=== PATIENT | male | born 1950 | race Caucasian/White ===

== ENCOUNTER → 2021-04-29 07:25 | Day surgery (SDC) | payer MEDICARE, SELFPAY ==
[2021-04-29] MEDS: Lidocaine Jelly 2% 20 ML Syringe (URO-JET) 20 APPLIC (08:00)
[2021-04-29 08:03] VITALS: BP 135/88; PULSE 69; RESP 18; TEMP 36.7; O2SAT 98
== END ==
PROVIDERS: Surgery; PCP Family Medicine; Referring Provider Surgery; Visit Provider Surgery
PROC: F00ZJWZ Instrumental Swallowing and Oral Function Assessment using Swallowing Equipment (ICD-10-PCS; CPT 43235; principal; 2021-04-29 07:25)
DX: K21.9 Gastro-esophageal reflux disease without esophagitis (principal)
CPT/HCPCS: 91010; 91013

== ENCOUNTER 2021-05-11 07:04 | Day surgery (SDC) | payer MEDICARE, SELFPAY ==
[2021-05-11 07:33] VITALS: BP 145/76; PULSE 54; RESP 18; TEMP 36.2; O2SAT 100; BMI 25.2
[2021-05-11] MEDS: Lactated Ringers 1,000 ML 100 ML IV (07:39)
--- NOTE | 2021-05-11 07:45 | HP.PCM_ITS ---
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 Mark Lindsey MD) BPH (benign prostatic hyperplasia) Gastroesophageal reflux disease HTN (hypertension) Surgical History (Updated 04/05/21 @ 14:01 by Aliyah iTm) H/O elbow surgery S/P shoulder surgery Status post knee surgery Family History (Updated 04/05/21 @ 14:03 by Aliyah Tim) Father Heart disease Hypertension CVA (cerebral vascular accident) Mother Hypertension Social History (Updated 04/05/21 @ 14:03 by Aliyah Tim) Smoking Status: Former smoker alcohol intake: current HPI HPI HPI: CLARISSE ALONZO, is a 70 M who presents to the office today for surgical consultation regarding gastroesophageal reflux disease. The patient is referred by Dr. Dylon Nieto and a written copy of my surgical consult and recommendations will be referred to him. By report the patient previously was taking Pepcid but is no longer using this. He was initiated on Prevacid 30 mg daily and Carafate as well he particularly complains of nighttime burning and reflux. His most recent colonoscopy was July [address] Alton Gomez. The patient states that remotely he had a colonoscopy by Dr. Saurav Madison that included a polypectomy. He is not aware of any more recent polyps. We will try to obtain records I assisted the patient March 03 with a esophagogastroduodenoscopy with antral biopsy of the fundic polyp and distal esophageal biopsies and pH probe placement. Pathology showed moderate moderate chronic gastritis. Benign fundic gland polyp. Reflux esophagitis. H. pylori was negative. The pH study demonstrated a DeMeester score of 39.5. This would correlate very well with the patient's current complaint of choking and reflux particularly at night. Heartburn. He is taking intermittent acid and acids and addition to the newly restarted proton pump inhibitors. He awakes with a foul taste. He is very much interested in trying to come off of medications. Only previous abdominal surgery was remote appendectomy. ROS General General: No weight change, appetite, fatigue, colon cancer, breast cancer or weakness HEENT HEENT: No difficulty swallowing, eye injury, eye surgery, swollen glands or hoarseness Endo Endocrine: No thyroid disease, diabetes mellitus, thyroid cancer, Hair loss, heat intolerance or cold intolerance Skin Skin: No rash or changing moles Breast Breast: No left breast lump, right breast lump, nipple discharge, breast pain, abnormal mammogram, abnormal US or breast enlargement Musc Musculoskeletal: Yes back problems and arthritis; No rheumatoid arthritis, gout or joint pain Cardio Cardiovascular: Yes high blood pressure; No murmur, pacemaker, heart disease, atrial fibrillation, heart attack, heart stent, palpitations, shortness of breat with exertion or chest pain Psych Psychiatric: No depression, anxiety or hearing voices Resp Respiratory: No shortness of breath, No sleep apnea, No cough, No COPD, No asthma, No emphysema and No wheezing Gastro Gastrointestinal: No abdominal pain, No nausea or vomiting, No diarrhea, No cons tipation, No blood in stool, Yes acid reflux, No hemorrhoids, No ulcers, No gallbladder problem and No black,tarry stools Juan Hematologic: No blood thinners, No blood disorders, No bleeding, No anemia and No blood clots Neuro Neurologic: No system reviewed and no additional complaints, except as documented, No as per HPI, No abnormal gait, No abnormal hearing, No abnormal movements, No abnormal speech, No behavioral changes, No burning sensations, No confusion, No convulsions, No disequilibrium, No dizziness, No localized weakness, No frequent falls, No headache(s), No lack of coordination, No loss of vision, No memory loss, No numbness, No other visual disturbances, No radicular pain, No restless legs, No sensory deficit, No syncope, No tingling, No tremor(s), No weakness and No other Exam Const General: cooperative, healthy appearing, comfortable and no acute distress Nutritional Appearance: average body habitus Orientation: alert and awake [facility] Head: normal to inspection Eyes General: appearance normal, both eyes and all related structures Neck Neck: normal visual inspection Resp Effort & Inspection: normal respiratory effort Auscultation: clear to auscultation bilaterally Cardio Rate: regular rate Rhythm: regular rhythm GI Other: Soft, nontender, no hepatosplenomegaly, well-healed oblique incision right lower quadrant, umbilical hernia with preperitoneal fibrofatty tissue mostly reducible, slightly tender to manipulative pressure. Normal bowel sounds. Musc Cervical Spine: normal cervical lordosis Skin General: no rashes or lesions noted Neuro General: patient alert, patient awake and patient oriented x3 Cognition: normal cognition Extrem General: no calf tenderness Psych Appearance: grossly normal COVID (Procedure Consent) Procedure Criteria Procedure Criteria: Yes Elective The surgeon/proceduralist and patient have discussed in detail the risk of exposure to and/or potential harm posed by the COVID-19 virus with having a surgery/procedure at this time versus the risk of delaying the surgery/procedure. It is not possible to know either the risk of delaying the surgery or procedure or chance of getting an infection with perfect accuracy, but a joint decision was made between the patient and the surgeon/proceduralist to proceed at this time with the scheduled surgery/procedure as indicated on the consent form. Assessment and Plan Assessment and Plan (1) Gastroesophageal reflux disease: Qualifiers: Esophagitis presence: with esophagitis Esophagitis bleeding: without hemorrhage Qualified Code(s): K21.00 - Gastro-esophageal reflux disease with esophagitis, without bleeding (2) Umbilical hernia without obstruction or gangrene: Status: Acute Plan - Dr. Mark Lindsey MD: The patient presents with ongoing concerns regarding intractable gastroesophageal reflux disease. He has already been found to have significant reflux with esophagitis and gastritis and an elevated DeMeester score based upon pH probe analysis. The studies however take back to 2017. I propose for him a redo esophagogastroduodenoscopy with possible biopsy. Measurements will be made. He will not need a redo pH probe. I recommend to them subsequently esophageal manometry. I have briefly discussed with him recommendations for laparoscopic repair of his hiatal hernia and a laparoscopic reflux procedure likely a laparoscopic toupet. The patient has concerns about his umbilical hernia. This will be inferior to the sites of my access. I do not propose simultaneous umbilical hernia repair at the time of his hiatal hernia repair. He has had an opportunity to ask and have questions answered. He is thinking about having the reflux surgery July 2021. We will proceed with scheduling his upper endoscopy at his discretion as well as a manometry. We will also request records regarding his most recent colonoscopy to assess as to whether polyps were present. If no polyps are present that I will not need to update that at this time. I appreciate the opportunity of assisting with surgical care Copy: Dr. Dylon Lindsey M.D., F.A.C.S. Coding Level of Care Code 41708 Diagnoses Gastroesophageal reflux disease K21.00 Esophagitis presence: with esophagitis Esophagitis bleeding: without hemorrhage Umbilical hernia without obstruction or gangrene K42.9 I have re-examined the patient. There are no clinical changes since date of exam. Mark Lindsey M.D., F.A.C.S.
--- NOTE | 2021-05-11 08:15 | IMM_PTH ---
PATIENT: CLARISSE ALONZO LOC: EN U#:[id number] AGE/SX: 70/M ROOM: RE05/11/[address]: Dr. Mark Lindsey MD : 1950 BED: DIS: 05/11/2021 SPEC #: [id number] RECD: 05/11/21 12:29 STATUS: LINA REKathryn #: [id number] LALY: 05/11/21 08:[address]: Mark Lindsey DEPT: IMMUNOHISTOCHEMISTRY RECD BY: Flora Mariee ENTERED: 05/11/21 12:30 SP TYPE: IMMUNO OTHR DR: Dr. Dylon Nieto MD Tissues: A - Stomach, NOS Procedures: H Pylori (initial) PHYSICIAN & INSTITUTION [place] [id number] SPECIMEN INFORMATION: Tissue Source: A ? Antrum biopsy, C ? Distal esophagus biopsy Clinical Info: GERD Specimen Number: [id number] A & C CPT code: 18160 x2, 48083 METHODOLOGY: Deparaffinized sections of prefer/formalin-fixed tissue or PAP/DQ stained slides are incubated with monoclonal/polyclonal antibodies/oligonucleotide probes. Localization is made via biotin free immunoperoxidase method. Appropriate controls are performed and reacted as expected. Results on target cell population are indicated in the following table: RESULTS: ANTIBODY / CLONE RESULT Block A H Pylori (polyclonal) negative Block C P53 (DO-7) negative Ki-67 (30-9) positive, low These tests were developed and their performance characteristics determined by [facility]. They may not have been cleared or approved by the U.S. Food and Drug Administration. The FDA has determined that such clearance or approval is not necessary. The above immunohistochemical/dualISH markers are ordered and reviewed by the pathologist. INTERPRETATION: A. Antrum biopsy: Negative for Helicobacter pylori organisms. C. Distal esophagus, biopsy: No evidence of dysplasia. AM:robert 05/13/2021
--- NOTE | 2021-05-11 08:15 | IMM_PTH ---
PATIENT: CLARISSE ALONZO LOC: EN U#:[id number] AGE/SX: 70/M ROOM: RE05/11/[address]: Dr. Mark Lindsey MD : 1950 BED: DIS: 05/11/2021 SPEC #: [id number] RECD: 05/11/21 12:29 STATUS: LINA REKathryn #: [id number] LALY: 05/11/21 08:[address]: Mark Lindsey DEPT: IMMUNOHISTOCHEMISTRY RECD BY: Flora Mariee ENTERED: 05/11/21 12:30 SP TYPE: IMMUNO OTHR DR: Dr. Dylon Nieto MD Tissues: A - Stomach, NOS Procedures: H Pylori (initial) PHYSICIAN & INSTITUTION [place] [id number] SPECIMEN INFORMATION: Tissue Source: A ? Antrum biopsy Clinical Info: GERD Specimen Number: [id number] CPT code: 64828 METHODOLOGY: Deparaffinized sections of prefer/formalin-fixed tissue or PAP/DQ stained slides are incubated with monoclonal/polyclonal antibodies/oligonucleotide probes. Localization is made via biotin free immunoperoxidase method. Appropriate controls are performed and reacted as expected. Results on target cell population are indicated in the following table: RESULTS: ANTIBODY / CLONE RESULT Block A H Pylori (polyclonal) negative These tests were developed and their performance characteristics determined by [facility]. They may not have been cleared or approved by the U.S. Food and Drug Administration. The FDA has determined that such clearance or approval is not necessary. INTERPRETATION: A. Antrum biopsy: Negative for Helicobacter pylori organisms. AM:robert 05/12/2021
--- NOTE | 2021-05-11 08:15 | EGD_PTH ---
PATIENT: CLARISSE ALONZO LOC: EN U#:[id number] AGE/SX: 70/M ROOM: RE05/11/[address]: Dr. Mark Lindsey MD : 1950 BED: DIS: 05/11/2021 SPEC #: [id number] RECD: 05/11/21 09:46 STATUS: LINA [place] #: [id number] LALY: 05/11/21 08:[address]: Mark Lindsey DEPT: SURGICAL PATHOLOGY RECD BY: Jacqui Arenas ENTERED: 05/11/21 10:46 SP TYPE: EGD BIOPSY OT DR: Dr. Dlyon Nieto MD Tissues: A - Gastric mucous membrane B - COLON BIOPSY C - Esophagus, NOS Procedures: Special Stain Group II Surgery Specimen Level IV Alcian Blue/PAS (control) HEADER OPERATION: EGD ([facility]) PRE-OP DIAGNOSIS: GERD TISSUE SUBMITTED: A ? Antrum biopsy for H. pylori and path, B ? Greater curvature polyp biopsy, C ? Distal esophagus biopsy MICROSCOPIC DIAGNOSIS A. Gastric antrum, biopsy: Chronic gastritis. See comment. B. Greater curvature of stomach polyp, biopsy: Fundic gland polyp. C. Distal esophagus, biopsy: Gastroesophageal junctional mucosa with mild chronic inflammation. Focal changes of reflux. 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 No evidence of dysplasia. See comment. AM:robert 05/12/2021 COMMENT A. The results of immunohistochemistry for Helicobacter pylori will be reported separately ([id number]). B. Alcian blue/PAS stain with matched control supports the above diagnosis. Immunohistochemistry ([id number]) for P53 and Ki-67 will be performed and results will be reported separately. MICROSCOPIC DESCRIPTION Slides are reviewed. GROSS DESCRIPTION A - Received in fixative is one container labeled with the patient's name and designated antrum biopsy. The specimen consists of one irregular fragment of light sykes soft tissue that measures 0.4 x 0.2 x 0.1 cm. The specimen is totally submitted in one cassette. B - Received in fixative is one container labeled with the patient's name and designated greater curvature polyp biopsy. The specimen consists of two irregular fragments of light sykes soft tissue that in aggregate measure 0.4 x 0.2 x 0.1 cm. The specimen is totally submitted in one cassette. C - Received in fixative is one container labeled with the patient's name and designated distal esophagus biopsy. The specimen consists of multiple irregular fragments of light sykes soft tissue that in aggregate measure 1 x 0.7 x 0.1 cm. The specimen is totally submitted in one cassette. / SJ:robert 05/11/21 TC:3 CPT: 95569 x3, 21415
[2021-05-11 08:55] VITALS: BP 114/55; BP 145/76; PULSE 66; RESP 18; TEMP 36.6; O2SAT 98
--- NOTE | 2021-05-11 08:56 | OP.CCLET_ITS ---
05/11/2021 Dylon Nieto MD Re : Upper GI endoscopy procedure for Sanford Munguia Dear Dr. Nieto This procedure was performed on Tuesday, May 11, 2021. My impressions and recommendations are as follows: Impressions : - LA Grade A reflux esophagitis. Biopsied. - Grade I esophageal varices. - Small hiatal hernia. - Erythematous mucosa in the antrum. Biopsied. - Multiple gastric polyps. Resected and retrieved. - Normal examined duodenum. Recommendations : - Await pathology results. - Telephone my office for pathology results in 1 week. - Resume previous diet. - Continue present medications. - Repeat upper endoscopy in 5 years for surveillance. At this time ongoing medical treatment anticipated My findings are described in the full procedure note, which is enclosed. If I can be of further assistance, please feel free to contact me at Doctor phone number(s): Work: . Sincerely, Mark Lindsey MD 05/11/2021 8:55:30 AM This report has been signed electronically.
--- NOTE | 2021-05-11 08:56 | OP.EGD_ITS ---
Patient Name: Sanford Munguia Procedure Date: 05/11/2021 8:34 AM Date of : 1950 Age: 70 Procedure: Upper GI endoscopy Indications: Esophageal reflux Providers: Mark Lindsey MD Medicines: See the Anesthesia note for documentation of the administered medications Complications: No immediate complications. Procedure: Pre-Anesthesia Assessment: - Prior to the procedure, a History and Physical was performed, and patient medications and allergies were reviewed. The patient's tolerance of previous anesthesia was also reviewed. The risks and benefits of the procedure and the sedation options and risks were discussed with the patient. All questions were answered, and informed consent was obtained. Prior Anticoagulants: The patient has taken no previous anticoagulant or antiplatelet agents. ASA Grade Assessment: II - A patient with mild systemic disease. After reviewing the risks and benefits, the patient was deemed in satisfactory condition to undergo the procedure. After obtaining informed consent, the endoscope was passed under direct vision. Throughout the procedure, the patient's blood pressure, pulse, and oxygen saturations were monitored continuously. The Endoscope was introduced through the mouth, and advanced to the second part of duodenum. The upper GI endoscopy was accomplished without difficulty. The patient tolerated the procedure well. Scope In: 8:41:08 AM Scope Out: 8:49:35 AM Total Procedure Duration Time 0 hours 8 minutes 27 seconds Findings: LA Grade A (one or more mucosal breaks less than 5 mm, not extending between tops of 2 mucosal folds) esophagitis with no bleeding was found 40 cm from the incisors. Biopsies were taken with a cold forceps for histology. A grade I varix was found in the middle third of the esophagus. A small hiatal hernia was present. Diffuse mildly erythematous mucosa without bleeding was found in the gastric antrum. Biopsies were taken with a cold forceps for histology. Multiple pedunculated and sessile polyps with no bleeding and no stigmata of recent bleeding were found in the gastric body. The polyp was removed with a cold biopsy forceps. Resection and retrieval were complete. The examined duodenum was normal. Impression: - LA Grade A reflux esophagitis. Biopsied. - Grade I esophageal varices. - Small hiatal hernia. - Erythematous mucosa in the antrum. Biopsied. - Multiple gastric polyps. Resected and retrieved. - Normal examined duodenum. Recommendation: - Await pathology results. - Telephone my office for pathology results in 1 week. - Resume previous diet. - Continue present medications. - Repeat upper endoscopy in 5 years for surveillance. At this time ongoing medical treatment anticipated Procedure Code(s): --- Professional --- 74522, Esophagogastroduodenoscopy, flexible, transoral; with biopsy, single or multiple Diagnosis Code(s): --- Professional --- K21.0, Gastro-esophageal reflux disease with esophagitis I85.00, Esophageal varices without bleeding K44.9, Diaphragmatic hernia without obstruction or gangrene K31.89, Other diseases of stomach and duodenum K31.7, Polyp of stomach and duodenum CPT copyright 2017 [employer]. All rights reserved. The codes documented in this report are preliminary and upon bottle capper review may be revised to meet current compliance requirements. Mark Lindsey MD 05/11/2021 8:55:30 AM This report has been signed electronically. Number of Addenda: 0 Note Initiated On: 05/11/2021 8:34 AM
[2021-05-11 09:00] VITALS: BP 109/70; BP 145/76; PULSE 71; RESP 18; O2SAT 97
[2021-05-11 09:05] VITALS: BP 121/78; BP 145/76; PULSE 67; RESP 18; O2SAT 100
[2021-05-11 09:10] VITALS: BP 108/90; BP 145/76; PULSE 57; RESP 18; TEMP 36.4; O2SAT 100
[2021-05-11 09:42] VITALS: BP 145/76
== END 2021-05-11 09:43 ==
LOC: EN 07:05 → AC 07:06
PROVIDERS: PCP Family Medicine; Referring Provider Family Medicine; Visit Provider Surgery
PROC: 0DJ08ZZ Inspection of Upper Intestinal Tract, Via Natural or Artificial Opening Endoscopic (ICD-10-PCS; CPT 43235; principal; 2021-05-11 08:10)
DX: K29.50 Unspecified chronic gastritis without bleeding (principal); I85.00 Esophageal varices without bleeding; K31.7 Polyp of stomach and duodenum; K44.9 Diaphragmatic hernia without obstruction or gangrene; K21.00 Gastro-esophageal reflux disease with esophagitis, without bleeding; K22.70 Barrett's esophagus without dysplasia; N40.0 Benign prostatic hyperplasia without lower urinary tract symptoms; I10 Essential (primary) hypertension; M19.90 Unspecified osteoarthritis, unspecified site; Z79.899 Other long term (current) drug therapy; Z87.891 Personal history of nicotine dependence
CPT/HCPCS: 43239; 88305; 88313; 88342; J7120; J2405

== ENCOUNTER → 2021-06-04 07:44 | Outpatient (CLI) | payer MEDICARE, SELFPAY ==
--- NOTE | 2021-06-04 07:53 | US_ITS ---
STUDY: ABDOMINAL ULTRASOUND REASON FOR EXAM: Male, 70 years old. Abnormal lfts TECHNIQUE: Transabdominal ultrasound was performed with real-time and static jo scale imaging. TECHNICAL QUALITY: Limited. Examination limited due to the patient?s condition. COMPARISON: None. FINDINGS: Liver: The liver is slightly enlarged and measures 18.3 cm. There is increased echogenicity consistent with fatty infiltration. The bile ducts are within normal limits. There is hepatic color flow. The direction of portal flow is hepatopetal. There is no demonstrated mass lesion. Portal vein measurement: Gallbladder: Normal distended gallbladder. The gallbladder wall measures 1.8 mm. There is a negative sonographic Madison''s sign. There is no pericholecystic fluid. There is a solitary echogenic gallstone within the gallbladder. Common Bile Duct (C.B.D.): The common bile duct measures 4.2 mm. Pancreas: Normal size of the head, body and tail of the pancreas. There is increased echogenicity of the pancreas. There is no demonstrated pancreatic mass or cyst. Spleen: There is splenomegaly. The spleen measures 13.4 cm x 5 cm x 5.5 cm. Right Kidney: Normal size of the right kidney. The right kidney measures 11.2 cm x 4.9 cm x 5.4 cm. Normal renal cortex. The right cortex measures 1.7 cm. There is a 1.3 cm x 1 cm x 1 cm right renal cyst. There is no right hydronephrosis. Left Kidney: Normal size of the left kidney. The left kidney measures 12 cm x 6 cm x 7.7 cm. Normal renal cortex. The left cortex measures 1.8 cm. There is a 1.9 cm x 2.2 sign by 2.3 cm cyst. There is no left hydronephrosis. Aorta: Atherosclerotic plaque. I.V.C.: The IVC is patent. There is no ascites. US/Abdomen Complete IMPRESSION: Mild hepatomegaly and fatty infiltration of the liver. Mild splenomegaly. Small bilateral renal cysts. Electronically Signed: Singh Walls MD at 12:34 EST , Service support ,
[2021-06-04 09:05] LABS: AST(SGOT) 29 U/L (15-37); Alanine Aminotransfer ALT/SGPT 30 U/L (16-61); Albumin, Serum 3.6 g/dL (3.2-5.0); Alkaline Phosphatase 81 U/L (45-117); Anion Gap 2 (5-15); BUN 19 mg/dL (7-18); BUN/Creat Ratio 17.4 RATIO (10-20); Calcium,Total 8.8 mg/dL (8.5-10.1); Chloride 108 mmol/L (98-107); Creatinine, Serum 1.09 mg/dL (0.70-1.30); EST Glomerular Filtration Rate 71 mL/min (>60); Est Glom Filt Rate - Afr Amer 86 mL/min (>60); Globulin 3.6 g/dL (2.2-4.2); Glucose 103 mg/dL (74-106); Potassium 4.6 mmol/L (3.5-5.1); Protein, Total 7.2 g/dL (6.4-8.2); Sodium Level 140 mmol/L (136-145)
== END ==
PROVIDERS: PCP Family Medicine; Referring Provider Surgery; Visit Provider Surgery
DX: R94.5 Abnormal results of liver function studies (principal); Z72.89 Other problems related to lifestyle; I10 Essential (primary) hypertension
CPT/HCPCS: 36415; 76700; 80053

== ENCOUNTER 2022-06-16 11:28 | Observation (INO) | payer MEDICARE, SELFPAY ==
--- NOTE | 2022-06-13 11:38 | EKG12_ITS ---
Test Reason : PREOP Blood Pressure : / mmHG Vent. Rate : 050 BPM Atrial Rate : 050 BPM P-R Int : 178 ms QRS Dur : 114 ms QT Int : 434 ms P-R-T Axes : 055 -24 033 degrees QTc Int : 395 ms Sinus bradycardia Otherwise normal ECG Confirmed by CUBA MORAES, REGINALDO ([id number]), state editor PHUC YANG ([id number]) on 06/14/2022 9:05:57 AM Referred By: Mark Lindsey Confirmed By:REGINALDO BRINK MD
[2022-06-13 12:27] LABS: Hematocrit 46.6 % (40-54); Hemoglobin 15.8 g/dL (13.0-16.5); Mean Corp Hgb Conc 33.9 g/dL (32-36); Mean Corpuscular Hgb 31.9 pg (27.0-32.0); Mean Corpuscular Volume 94.1 fL (80-94); Mean Platelet Vol. 10.7 fl (6.2-12.0); Platelet Count 236 K/mm3 (150-450); RBC Distribution Width CV 12.3 % (11.6-14.6); RBC Distribution Width SD 42.5 fl (35.1-43.9); Red Blood Count 4.95 M/mm3 (4.6-6.2); White Blood Count 6.1 K/mm3 (4.4-11.0)
[2022-06-13 13:36] LABS: Anion Gap 8 (5-15); BUN 18 mg/dL (7-18); BUN/Creat Ratio 17.3 RATIO (10-20); Calcium,Total 8.9 mg/dL (8.5-10.1); Chloride 107 mmol/L (98-107); Creatinine, Serum 1.04 mg/dL (0.70-1.30); EST Glomerular Filtration Rate 75 mL/min (>60); Est Glom Filt Rate - Afr Amer 90 mL/min (>60); Glucose 102 mg/dL (74-106); Potassium 4.2 mmol/L (3.5-5.1); Sodium Level 140 mmol/L (136-145)
[2022-06-16] VITALS (14 sets, daily range): BP systolic 142–182; BP diastolic 73–97; PULSE 61–87; RESP 16–20; TEMP 36.2–37.1; O2SAT 96–100; BMI 24.3
--- NOTE | 2022-06-16 | HERN_PTH ---
PATIENT: CLARISSE ALONZO LOC: MS3 U#:[id number] AGE/SX: 71/M ROOM: AK319 RE06/16/[address]: Dr. Mark Lindsey MD : 1950 BED: 1 DIS: 06/17/2022 SPEC #: [id number] RECD: 06/16/22 12:41 STATUS: LINA SINCLAIRKathryn #: [id number] LALY: 06/16/22 00:[address]: Mark Lindsey DEPT: SURGICAL PATHOLOGY RECD BY: Bret Taylor ENTERED: 06/16/22 12:41 SP TYPE: Hernia OTHR DR: Dr. Dylon Nieto MD Tissues: HERNIA Procedures: Surgery Specimen Level II HEADER OPERATION: Laparoscopic hiatal hernia repair with laparoscopic Toupet PRE-OP DIAGNOSIS: Cholelithiasis, umbilical hernia, GERD, Narvaez?s esophagus TISSUE SUBMITTED: Hernia sac MICROSCOPIC DIAGNOSIS Hernia sac, herniorrhaphy: Fibrofatty tissue consistent with hernia sac with associated minimal chronic inflammation. AM:robert 06/17/2022 MICROSCOPIC DESCRIPTION Slides are reviewed. GROSS DESCRIPTION Received in fixative is one container labeled with the patient's name and designated hernia sac. The specimen consists of three irregular fragments of yellow-pink fibrofatty tissue that in aggregate measure 4 x 3.5 x 0.7 cm. Serial sections do not reveal mass lesions. Commissary Clerk sections are submitted in one cassette. / AM:robert 06/16/2022 TC:3 CPT: 02347
--- NOTE | 2022-06-16 06:24 | HP.PCM_ITS ---
History and Physical Date of Admission: 06/16/22 Allergies No Known Allergies Allergy (Verified 05/16/22 13:20) Medications amitriptyline 25 mg tablet 25 mg PO QHS 03/03/17 [History Confirmed 09/23/21] lansoprazole 30 mg capsule,delayed release (Prevacid) 30 mg PO DAILY 03/03/17 [History Confirmed 09/23/21] sucralfate 1 gram tablet 1 g PO 4X/DAY PRN Gi Cramping 03/03/17 [History Confirmed 09/23/21] tamsulosin 0.4 mg capsule 0.4 mg PO DAILY 03/03/17 [History Confirmed 09/23/21] lisinopril 30 mg tablet 30 mg PO BID 04/05/21 [History Confirmed 09/23/21] gabapentin 400 mg capsule 400 mg PO BID 05/16/22 [History Confirmed 05/16/22] PFSH Medical History? Alcohol use Arthritis Back pain BPH (benign prostatic hyperplasia) Difficulty swallowing Gastric reflux Gastroesophageal reflux disease History of IBS History of stress test HTN (hypertension) Non-smoker Prostate disease Wears glasses Surgical History? H/O elbow surgery History of esophagogastroduodenoscopy (EGD) Hx of appendectomy Hx of colonoscopy S/P shoulder surgery Status post knee surgery Family History? Father Heart disease Hypertension CVA (cerebral vascular accident)Mother Hypertension Social History? Smoking Status:? Never smoker alcohol intake:? current HPI HPI HPI: 71-year-old gentleman who I have most recently seen on September 23, 2021.? He has gastroesophageal reflux disease and suspected chronic cholecystitis cholelithiasis.? Images reviewed from a pulmonary and CT scan demonstrates the liver to be 18.4 cm in length and the spleen 11.1 cm unchanged from previously. Laboratory of June 04, 2021 demonstrated normal liver function test.? Same day and ultrasound showed a slightly enlarged liver at 18.3 cm.? A distended gallbladder with a solitary stone.? Mild splenomegaly. We had also previously had extensive discussion with the patient regarding the benefit risk of a laparoscopic toupet procedure versus laparoscopic Ronaldo fundoplication.? Esophageal manometry had normal swallowing function.? His preference was not to proceed with reflux surgery at that time.? He states that his status post cholecystectomy which I assisted with continues to have looser stools and this concerns him.? On the patient's upper endoscopy had some slight variceal changes of the esophagus but were felt to be minimal.? He has urinary retention is on Flomax. I now have information from the [facility]. Laboratory of 08/09/2018 at that point suggested a total of bilirubin of 0.5 with an alkaline phosphatase of 65 AST of 27. PSA was 1.08. Total cholesterol was 203 with triglycerides 107. On 08/09/2018 screening aortic exam was notable that the proximal aorta measured 2.7 x 2.8 cm in diameter and was negative for aortic aneurysm He does have 1-2 drinks daily. May 11, 2021 and performed an upper endoscopy.? Reflux esophagitis was identified with a EG junction at 40 cm.? Small varix was seen in the middle third.? Small hiatal hernia was noted.? Pedunculated polyps of the stomach noted.? No H. pylori.? Gastric biopsy showed chronic gastritis and fundic gland polyp.? 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 pH study demonstrated a DeMeester score of 39.5.? The patient complains of choking and reflux particularly at night as well as heartburn.? He takes intermittent antacids in addition to his restarted proton pump inhibitors.? Complains of a foul taste. He had a remote upper GI contrast study March 02, 2017 showing a small sliding hiatal hernia with no obstruction.? There were 3 duodenal diverticulum in the second portion and third portion of the duodenum each measuring 1 cm. Manometry performed at the [facility] April 29, 2021 showed 10 swallows analyzed and were normal with good bolus clearance. At the time of his most recent visit he claimed that despite proton pump inhibitors and cervical fate he continued to have reflux symptoms.? He does have his head of his bed raised.? He takes his medications in the morning by evening is having reflux symptoms. Additionally on clinical exam is noted to have an umbilical hernia.? Simultaneous repair was not proposed. She has a neighbor who had a laparoscopic Ronaldo fundoplication performed out of town.? Initially she was quite happy that she started having trouble with solid food.? The patient is very anxious that this may occur to him. We spent most of the 40-minute appointment discussing the surgical treatment options and benefits and risks ROS General General: No weight change, appetite, fatigue, colon cancer, breast cancer or weakness HEENT HEENT: No difficulty swallowing, eye injury, eye surgery, swollen glands or hoarseness Endo Endocrine: No thyroid disease, diabetes mellitus, thyroid cancer, Hair loss, heat intolerance or cold intolerance Skin Skin: No rash or changing moles Breast Breast: No left breast lump, right breast lump, nipple discharge, breast pain, abnormal mammogram, abnormal US or breast enlargement Musc Musculoskeletal: Yes back problems and arthritis; No rheumatoid arthritis, gout or joint pain Cardio Cardiovascular: Yes high blood pressure; No murmur, pacemaker, heart disease, atrial fibrillation, heart attack, heart stent, palpitations, shortness of breat with exertion or chest pain Psych Psychiatric: No depression, anxiety or hearing voices Resp Respiratory: No shortness of breath, No sleep apnea, No cough, No COPD, No asthma, No emphysema and No wheezing Gastro Gastrointestinal: No abdominal pain, No nausea or vomiting, No diarrhea, No constipation, No blood in stool, Yes acid reflux, No hemorrhoids, No ulcers, No gallbladder problem and No black,tarry stools Juan Hematologic: No blood thinners, No blood disorders, No bleeding, No anemia and No blood clots Neuro Neurologic: No system reviewed and no additional complaints, except as documented, No as per HPI, No abnormal gait, No abnormal hearing, No abnormal movements, No abnormal speech, No behavioral changes, No burning sensations, No confusion, No convulsions, No disequilibrium, No dizziness, No localized weakness, No frequent falls, No headache(s), No lack of coordination, No loss of vision, No memory loss, No numbness, No other visual disturbances, No radicular pain, No restless legs, No sensory deficit, No syncope, No tingling, No tremor(s), No weakness and No other Exam Const General: cooperative, healthy appearing, comfortable and no acute distress [facility] Head: normal to inspection Eyes General: appearance normal, both eyes and all related structures Neck Neck: normal visual inspection Chest Chest palpation & inspection: normal inspection of the chest Resp Effort & Inspection: normal respiratory effort Auscultation: clear to auscultation bilaterally Cardio Rate: regular rate Rhythm: regular rhythm GI Palpation: soft and no hepatosplenomegaly Auscultation: normal bowel sounds Musc Cervical Spine: normal cervical lordosis Skin General: no rashes or lesions noted Neuro General: patient alert, patient awake, patient oriented x3 and oriented Extrem General: no calf tenderness Psych Appearance: grossly normal Assessment and Plan Assessment and Plan (1) Cholelithiasis: ?Status:?Acute ?Qualifiers: ?Biliary obstruction:?without biliary obstruction??Cholecystitis presence:?without cholecystitis??Cholelithiasis location:?gallbladder? Qualified Code(s):?K80.20 - Calculus of gallbladder without cholecystitis without obstruction (2) Umbilical hernia without obstruction or gangrene: ?Status:?Acute ?Comment: 06/01/2021 I now have information from the [facility]. Laboratory of 08/09/2018 at that point suggested a total of bilirubin of 0.5 with an alkaline phosphatase of 65 AST of 27. PSA was 1.08. Total cholesterol was 203 with triglycerides 107. On 08/09/2018 screening aortic exam was notable that the proximal aorta measured 2.7 x 2.8 cm in diameter and was negative for aortic aneurysm. The patient gave me the impression that it his laboratory was recent updated. I am requesting a abdominal ultrasound to assess for liver changes and possible varices. I will request that we update a CMP. Mark Lindsey M.D., F.A.C.S. (3) Gastroesophageal reflux disease: ?Status:?Acute ?Qualifiers: ?Esophagitis bleeding:?without hemorrhage??Esophagitis presence:?with esophagitis? Qualified Code(s):?K21.00 - Gastro-esophageal reflux disease with esophagitis, without bleeding (4) Narvaez's esophagus determined by biopsy: ?Status:?Acute Plan Because of the patient's post cholecystectomy urgent liquidy stools he has elected to keep his solitary gallstone and gallbladder. Because of his neighbors procedure that was done out of town and then subsequently though initially she did well then started having trouble with solid food he has concerns that this could occur with a 360 degree wrap.? The patient also does some air belching.? He is concerned that he may get gas bloat.? He did have normal esophageal manometry study. After an extensive discussion regarding technique and benefit risk complications alternatives.? We discussed the diaphragm repair and sutured pledgets.? I do not prefer utilization of mesh.? We did discuss the benefits of the laparoscopic toupet 270 degree wrap though if there is a weakness it could be with durability.? He has had an opportunity to ask and have questions answered and he is more comfortable with the partial wrap. We discussed his slight liver increased size and slightly increased slides of the spleen.? Great care will need to be pursued regarding addressing the short gastrics. Because of his ongoing symptoms he states that since he seen me last he has had 2 episodes of awakening in the middle night with his air shot often coughing and sputtering due to reflux and this is despite head of bed elevated and not eating or drinking past 6 PM. He still typically has 2 drinks per day wine,Sometimes beer.? I have encouraged him not to exceed that. I appreciate the ongoing opportunity of assisting with the surgical care Copy: Dr. Dylon Lindsey M.D., F.A.C.S Laboratory as of June 13, 2022 demonstrates a white blood cell count of 6.1 with a hemoglobin 15.8 and hematocrit of 46.6 with a platelet count of 236,000. BUN was 18 and creatinine 1.04. Previous liver function tests of 1 year ago were normal. I have again reviewed the surgical approach with the patient today. He continues not to want a cholecystectomy. He reiterates that he would not he wants a laparoscopic toupet procedure and not a full 360 degree Ronaldo wrap. He has had an opportunity to ask and have questions answered. We will proceed as noted. Mark Lindsey M.D., F.A.C.S.
--- NOTE | 2022-06-16 06:28 | DCINST_ITS ---
Discharge Instructions Procedure General Surgery Diet Discharge Diet: - (Dietary restrictions as per the provided diet and activity instruction sheets) Activity Discharge Activity: May Not Drive (for 3-5 days or while taking narcotic pain medicine.) May shower in (days): 1 Lifting Restrictions: 10 pounds Dressing / Incision Call your doctor if your incision/area has: Continuous Slow Oozing, Sudden Increased Bleeding, Increased Pain/ Swelling, Increased Redness and Foul Smelling Discharge Call your doctor if you observe: Fever of 101 or Higher Suture Line Care: Avoid Pulling/Pushing and Avoid Pinching/Bending Additional Dressing/Incision Instructions:: Change or remove dressing in 4 days. Leave steri-strips in place for 1 week. Cut the Persaud sidebar on Monday, June 20, 2022 early in the morning allowed the balloon to deflate if its water and then remove the catheter. If you do not return to your normal voiding pattern then contact the office well within office hours so you can return to the office to have a catheter replaced. If this occurs I would then recommend future follow-up with your urologist in [facility]. Continue all of your routine medications and antireflux measures. If we can to hand you have issues that I would anticipate a future upper GI contrast study to assess positioning and wrap as well as possible a gastric emptying study to see if this is complicating the reflux symptoms. You might be benefited by being placed on metoclopramide to assist with gastric emptying Mark Lindsey M.D., F.A.C.S. Follow Up Care Please Follow Up With: Mark Lindsey MD When: Call [phone] to make an appointment to be seen in about 10 days. Discharge Plan Admission Admit Date/Time: 06/16/22 11:28 Primary Reason for Your Visit: Intractable gastroesophageal reflux disease Attending Provider: Mark Lindsey Primary Care Provider: Dylon Nieto Discharge Orders/Prescriptions Prescriptions: New hydrocodone-acetaminophen 5-325 mg tablet 1 tab PO Q6H PRN (Reason: pain) 3 Days Qty: 10 0RF Continued lisinopril 30 mg tablet 30 mg PO BID gabapentin 400 mg capsule 400 mg PO TID sucralfate 1 GM tablet 1 g PO 4X/DAY PRN (Reason: Gi Cramping) amitriptyline 25 MG tablet 25 mg PO QHS tamsulosin 0.4 MG capsule 0.4 mg PO DAILY lansoprazole [Prevacid] 30 MG capsule 30 mg PO DAILY Other Ambulatory Orders: 12 Lead EKG (Routine) Timeframe: [id number] Location: None Selected Ordered By: Dr. Mark Lindsey Referrals / Follow Up: Dylon Nieto MD [Primary Care Provider] - Disposition Disposition (needs filled in before D/C Order can be placed): Home, Self Care
[2022-06-16] MEDS: Lactated Ringers 1,000 ML 15 ML IV ×3 (06:30→11:25)
[2022-06-16] MEDS: Cefazolin 2 GM in 0.9% Normal Saline 100 ML IV (07:30)
--- NOTE | 2022-06-16 11:15 | OP.PCM_ITS ---
Report of Operation Date of Procedure: 06/16/22 Pre-Operative Diagnosis: Intractable gastroesophageal reflux disease and Delvin t's esophagus without dysplasia Post-Operative Diagnosis: Same Surgery/Procedure Performed:: Laparoscopic repair of hiatal hernia with laparoscopic toupet procedure. Esophagogastroduodenoscopy Description of Surgical Findings:: Timeout informed consent was obtained. 71-year-old gentleman was taken to the operating placed supine on the table underwent general endotracheal intubation esthesia Ancef 2 g were given intravenously he was on a beanbag he was placed in a low lithotomy position the being applied with some flatus to help secure him. The abdomen was then sterilely prepped and draped. Ioban draping was used as well. Throughout the procedure 0.25% Marcaine was used as a local anesthetic. Throughout the procedure a total of 60 cc was used. Skin sites were reanesthetized and the right upper quadrant epigastric. Midline area under Visiport technology clean access was gained to the abdomen the abdomen was insufflated with CO2 to a pressure of 10 mmHg pressure 10 mm trocar was inserted in the left paramedian spot in the epigastrium then 2 more 5 mm trochars in the left subcostal area and then a Maryam retractor was placed in the epigastric area to help elevate a shriveled left lobe of the liver. The right lobe of the liver appeared to have fairly normal color. Gallbladder had normal coloration and was appear to be of normal size. On inspection unfortunately the omentum was adherent to the pars flaccida and epiphrenic ligament and crura. Initial identification was extraordinarily difficult. Tried dissecting from the right but the anatomy was blurred so then I transected the short gastrics from the mid greater curvature all the way up to the EG junction. Great care was taken to obtain hemostasis and where needed additional Hem-o-angelique clips were placed. It is of note that the vasculature appeared to be larger than normal and tissue more readily bled than normal. Hemostasis and on the left was maintained. Finding was able to identify the left bassem and was able to dissect the adherent omentum off then the anterior save was sent via esophagus could then identify the right bassem got posterior axis placed to half inch Carlos Manuel drain identified the posterior vagus nerve and protected that did circumferential dissection so that I had good length of esophagus at the least 3 to 4 cm within the abdomen. Tedious dissection continued to be formed posteriorly to make sure that I had posterior fat pad completely reduced. Once I had that I then approximated the crura with simple sutures of 0 Ethibond with pledgets. Extra corporeal technique was utilized and I additionally secured the knots intracorporeally. 3 sutures were placed and this appeared to approximate the diaphragm quite nicely. It is of note that the anesthesia service had difficulty placing an OG tube so I did not asked them to attempt to place a bougie dilator. [place] that the resting esophagus was in good position and had good closure of the esophageal hiatus without making it too snug. Then took the fundus of the stomach and wrapped it around posteriorly I secured the posterior aspect of the wrap to the repaired crura with a 0 Nurolon suture. I then performed a toupet procedure securing the esophagus to the epiphrenic ligament to the wrap portion of the stomach with 2-0 Ethibond in a running fashion approximately approximately 2 to 3 cm of stomach. I did a similar treatment on the left securing the fundus to the esophagus to the epiphrenic ligament and then in running fashion to the esophagus for approximately 3 cm. This was done at approximately a 270 degree if not just slightly more wrapped. On inspection I felt that I had a very nice ramp with anterior wall still free good posterior wrap hemostasis was intact there was again no tension on the EG junction no tension on the wrap. Now the abdomen was irrigated with fluid I performed an upper endoscopy as will be dictated in the probation system. The wrap was nicely in place there was no air leak. The abdomen was deflated of the CO2 once the 10 mm port site was closed with a grainy needle and [id number]-hbsxy suture of 0 Vicryl. Skin edges approximated opted for Monocryl subdermal stitches. Steri-Strips Telfa OpSite dressings applied. Sponge and instrument and needle counts were reported to the surgeon to be correct. Before doing the wrap I did take some of the anterior fibrofatty tissue sac tissue and excise that with harmonic scalpel and submitted as specimen. Specimen hernia sac fibrofatty tissue. Blood loss 10 cc. Drains none. The patient was taken to the recovery room in satisfied condition without apparent complication Mark Lindsey M.D., F.A.C.S. Surgeon: Mark Lindsey Type of Anesthesia: General and Local Anesthesiologist: Thao Rosario
[2022-06-16] MEDS: Bupivacaine 0.25% 30 ML Vial ×2 (11:22)
--- NOTE | 2022-06-16 11:28 | OP.EGD_ITS ---
Patient Name: Sanford Munguia Procedure Date: 06/16/2022 10:45 AM Date of : 1950 Age: 71 Procedure: Upper GI endoscopy Indications: Intraoperative evaluation of fundoplication formation during anatomic reconstruction foregut surgery Providers: Mark Lindsey MD Medicines: General Anesthesia Complications: No immediate complications. Procedure: Pre-Anesthesia Assessment: - Prior to the procedure, a History and Physical was performed, and patient medications and allergies were reviewed. The patient's tolerance of previous anesthesia was also reviewed. The risks and benefits of the procedure and the sedation options and risks were discussed with the patient. All questions were answered, and informed consent was obtained. Prior Anticoagulants: The patient has taken no previous anticoagulant or antiplatelet agents. ASA Grade Assessment: II - A patient with mild systemic disease. After reviewing the risks and benefits, the patient was deemed in satisfactory condition to undergo the procedure. After obtaining informed consent, the endoscope was passed under direct vision. Throughout the procedure, the patient's blood pressure, pulse, and oxygen saturations were monitored continuously. The gastroscope was introduced through the mouth, and advanced to the second part of duodenum. The upper GI endoscopy was accomplished without difficulty. The patient tolerated the procedure well. Scope In: 10:56:46 AM Scope Out: 11:01:50 AM Total Procedure Duration Time 0 hours 5 minutes 4 seconds Findings: LA Grade A (one or more mucosal breaks less than 5 mm, not extending between tops of 2 mucosal folds) esophagitis with no bleeding was found 40 cm from the incisors. Narvaez's esophagus was present at the gastroesophageal junction. Evidence of a Toupet fundoplication was found in the gastric fundus. The wrap appeared intact. The examined duodenum was normal. Impression: - LA Grade A reflux esophagitis. - Narvaez's esophagus. - A Toupet fundoplication was found. The wrap appears intact. - Normal examined duodenum. - No specimens collected. Recommendation: - Discharge patient to home. - Observe patient in same day observation unit for ongoing care. - Clear liquid diet. - Continue present medications. - Return to my office in 10 days. 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 All rights reserved. The codes documented in this report are preliminary and upon pinking sewing machine operator review may be revised to meet current compliance requirements. Mark Lnidsey MD 06/16/2022 11:27:58 AM This report has been signed electronically. Number of Addenda: 0 Note Initiated On: 06/16/2022 10:45 AM
[2022-06-16] MEDS: Gabapentin 400 MG Capsule PO ×2 (18:12→22:31)
[2022-06-16] MEDS: Acetaminophen 325 MG Tablet 650 MG PO (18:12)
[2022-06-16] MEDS: Tamsulosin HCl 0.4 MG Capsule PO (18:37)
[2022-06-16] MEDS: Lisinopril 10 MG Tablet 30 MG PO (18:37)
--- NOTE | 2022-06-16 18:52 | NURSING ---
Sitting in chair. Walked in [place]on twice now and wants to walk another time before bed.
[2022-06-16] MEDS: Amitriptyline 25 MG Tablet PO (22:31)
[2022-06-17] MEDS: Acetaminophen 325 MG Tablet 650 MG PO ×2 (00:26→06:42)
--- NOTE | 2022-06-17 01:23 | NURSING ---
Patient ambulated 2 laps before bed.
[2022-06-17 02:45] VITALS: BP 160/88; PULSE 66; RESP 18; TEMP 36.7; O2SAT 96
[2022-06-17] MEDS: Gabapentin 400 MG Capsule PO (04:59)
--- NOTE | 2022-06-17 06:39 | PN.SURG_ITS ---
Subjective Subjective Patient states that he is burping belching. He states he had broth last night and literally 1 hour after eating had reflux when he was supine. Objective Data Objective Data Vital Signs: Vital Signs Temp Pulse Resp BP Pulse Ox O2 Del Method O2 Flow Rate 98.1 F 66 18 160/88 H 96 Room Air 6 06/17/22 02:45 06/17/22 02:45 06/17/22 02:45 06/17/22 02:45 06/17/22 02:45 06/17/22 02:45 06/16/22 18:04 Oxygen Flow Rate (L/min) 6 Oxygen Delivery Method Room Air Weight: 184 lb Body Mass Index (BMI) 24.3 Intake & Output: Intake and Output for Last 24 Hours 06/15/22 06/16/22 06/17/22 23:59 23:59 23:59 Intake Total 2217.75 / 3317.75 1700 / 1700 Output Total 2835 / 3435 1999 Balance -617.25 / -117.25 -300 / -300 Lab / Micro Data Result Diagrams: 06/13/22 11:27 06/13/22 11:27 Physical Exam GI GI Narrative: Abdomen is soft, nontender, draining clear urine Assessment & Plan Assessment/Plan (1) Acute on chronic urinary retention: (2) 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 I explained to him that I actually wrapped fluid around the 270 degrees. Likely closer to 310 degrees because of the patient's preoperative symptoms and 1 daughter desire to help assist. At the completion of the procedure a esophagogastroduodenoscopy was performed demonstrating that at resting there was seemingly occlusive nature of the distal esophagus at the wrap.. The sutures for each of the repair appeared to be quite solid. I felt that I obtained good suture approximation of the stomach to the esophagus and took 6 quite reasonable suture bites. At the completion procedure the endoscopy and the wrap looked quite intact I offered him return to the operating room immediately for conversion of the toupet wrap to complete 360 degree wrap though its not immediately clear to me that this would solve the problem. I stated that returning after 1 to 2 weeks would be ill formed due to the healing process at that time If he continues to have trouble that I would anticipate a barium swallow as an outpatient as well as a gastric emptying study. He might need to be placed on metoclopramide to assist with gastric emptying. He is to cut the sidebar on Monday and remove his Persaud first thing Monday morning and contact us if he is not able to void. He freely admits that he has chronic significant voiding issues and frequently voids frequent small amounts. He does have a urologist in [facility] [place] who sounds like offered him a urologic procedure but has not pursued it. He has written instructions regarding diet and activity. Office follow-up approximately 10 days recommended. He is additionally instructed to return to the office if he is not able to void on Monday Mark Lindsey M.D., F.A.C.S.
[2022-06-17 07:46] VITALS: BP 117/82; PULSE 79; RESP 18; TEMP 37.1; O2SAT 98
[2022-06-17 09:03] VITALS: BP 117/82; PULSE 79; RESP 18; TEMP 37.1; O2SAT 98
== END 2022-06-17 09:43 | disposition home or self-care (01) ==
LOC: SDC 15:50 → MS3 15:50
PROVIDERS: Admitting Provider Surgery; PCP Family Medicine; Referring Provider Surgery; Visit Provider Surgery
PROC: (CPT 43325; principal; 2022-06-16 07:10)
DX: K21.00 Gastro-esophageal reflux disease with esophagitis, without bleeding (principal); R33.9 Retention of urine, unspecified; K80.20 Calculus of gallbladder without cholecystitis without obstruction; K22.70 Barrett's esophagus without dysplasia; Z79.899 Other long term (current) drug therapy; I10 Essential (primary) hypertension; N40.0 Benign prostatic hyperplasia without lower urinary tract symptoms; M19.90 Unspecified osteoarthritis, unspecified site; R13.10 Dysphagia, unspecified
CPT/HCPCS: 43280; 00790; 36415; 80048; 85027; 88302; 93005; 99218; 99251; J7120; G0378; G0463; J2405

== ENCOUNTER → 2023-05-08 | Outpatient (CLI) | payer MEDICARE, SELFPAY ==
--- NOTE | 2023-05-08 08:34 | RAD_ITS ---
EXAMINATION: Air contrast UPPER GI SERIES INDICATION: Male, 72 years epigastric pain. History of prior Ronaldo fundoplication. FLUOROSCOPY TIME (if supplied): (0:45) minutes/seconds. 21.29 mGy. 10 images were obtained. TECHNIQUE: Radiographic and fluoroscopic images of the distal esophagus, stomach, and proximal small intestine were obtained following the oral ingestion of barium. COMPARISON: None. FINDINGS: There is no evidence for organomegaly, abnormal calcifications, or abnormal bowel gas pattern. The psoas margins and flank stripes are normal. The visualized osseous structures are normal. The mucosa of the esophagus, stomach and duodenum is normal in appearance without evidence for stricture, ulceration, mass or diverticulum. There is no evidence for hiatal hernia or gastroesophageal reflux. The patient ingested a 12 mm tablet of barium without any difficulty. The stomach and duodenum are unremarkable. RAD/Upper GI w/BA Swallow IMPRESSION: 1. Normal upper gastrointestinal study. Electronically Signed: Singh Walls MD at 14:18 EDT ,
== END | disposition home or self-care (01) ==
LOC: RAD 08:14
PROVIDERS: PCP Family Medicine; Referring Provider Physician Assistant; Visit Provider Physician Assistant
DX: R13.10 Dysphagia, unspecified (principal); R14.0 Abdominal distension (gaseous)
CPT/HCPCS: 74246

== ENCOUNTER 2023-06-02 08:55 | Day surgery (SDC) | payer MEDICARE, SELFPAY ==
[2023-06-02 09:18] VITALS: BP 163/74; PULSE 54; RESP 12; TEMP 36.4; O2SAT 100; BMI 23.9
[2023-06-02] MEDS: Lactated Ringers 1,000 ML 15 ML IV (09:25)
--- NOTE | 2023-06-02 09:27 | HP.PCM_ITS ---
History and Physical Date of Admission: 06/02/23 isit Reasons: PAINFUL GAS WAKING HIM UP IN THE NIGHT Chief Complaint: lap ronaldo 06/16 Painful Gas Medical Assembler Required: No Is patient in pain?: No Allergies No Known Allergies Allergy (Verified 04/17/23 12:54) Medications amitriptyline 25 mg tablet 25 mg PO QHS 03/03/17 [History Confirmed 04/17/23] tamsulosin 0.4 mg capsule 0.4 mg PO DAILY 03/03/17 [History Confirmed 04/17/23] lisinopril 30 mg tablet 30 mg PO BID 04/05/21 [History Confirmed 04/17/23] gabapentin 400 mg capsule 400 mg PO TID 05/16/22 [History Confirmed 04/17/23] sodium sul 1.479 gram-potas ch 0.188 gram-magnes sul 0.225 gram tablet (Sutab) See Rx Instructions PO PER PKG DIR #1 pkg 04/18/23 [Rx Confirmed 04/18/23] PFSH Medical History (Updated 04/18/23 @ 09:18 by Nadege FRYE, PA-C) Alcohol use Arthritis Back pain BPH (benign prostatic hyperplasia) Difficulty swallowing Former smoker Gastric reflux Gastroesophageal reflux disease History of hiatal hernia History of IBS History of stress test Hoarseness HTN (hypertension) Non-smoker Prostate disease Wears contact lenses Wears glasses Surgical History (Updated 06/27/22 @ 13:33 by Aliyah Tim) H/O elbow surgery History of esophagogastroduodenoscopy (EGD) Hx of appendectomy Hx of colonoscopy S/P shoulder surgery Status post knee surgery Status post laparoscopic Ronaldo fundoplication Family History Father Heart disease Hypertension CVA (cerebral vascular accident)Mother Hypertension Social History Smoking Status: Former smoker alcohol intake: current HPI HPI Surgical H&P: Yes HPI: Patient is a 72 y/o M who presents with new onset symptoms of belching. He had a laparoscopic repair of hiatal hernia with laparoscopic toupet procedure by Dr. Lindsey on 06/16/2022. Patient stated his recovery went very well. He was able to eat what he wanted and ingest what he wanted without any concerns or issues. He noted starting at the beginning of February he had the feeling of gas becoming stuck in the mid chest. He stated this would occur immediately after drinking coffee in the morning. He noted this would occur 3 hours after eating dinner. Patient also noted occasionally this would occur and wake him in the middle of the night. Patient notes most of the gas episodes during the day would resolve with positional changes. He states he has had to take TUMs possibly 3 times since his toupet surgery. Patient notes gas-x helps his gas discomfort in the middle of the night. Patient is questioning why now is it that he is starting to have some symptoms when he is so far out from surgery. He denies food or liquids getting stuck. He denies medication getting stuck. He is no longer taking Prevacid since his surgery. Patient also notes he had a colonoscopy by Dr. Gomez on 07/02/15. He denies any family history of colon cancer. He denies any changes in bowel habits. He denies melena or bright red blood per rectum. He denies abdominal pain. ROS General General: No weight change, appetite, fatigue, colon cancer, breast cancer or weakness HEENT HEENT: No difficulty swallowing, eye injury, eye surgery, swollen glands or hoarseness Endo Endocrine: No thyroid disease, diabetes mellitus, thyroid cancer, Hair loss, heat intolerance or cold intolerance Skin Skin: No rash or changing moles Breast Breast: No left breast lump, right breast lump, nipple discharge, breast pain, abnormal mammogram, abnormal US or breast enlargement Musc Musculoskeletal: Yes back problems; No arthritis, rheumatoid arthritis, gout or joint pain Cardio Cardiovascular: Yes high blood pressure; No murmur, pacemaker, heart disease, atrial fibrillation, heart attack, heart stent, palpitations, shortness of breat with exertion or chest pain Psych Psychiatric: No depression, anxiety or hearing voices Resp Respiratory: No shortness of breath, No sleep apnea, No cough, No COPD, No asthma, No emphysema and No wheezing Gastro Gastrointestinal: No abdominal pain, No nausea or vomiting, No diarrhea, No constipation, No blood in stool, No acid reflux, No hemorrhoids, No ulcers, No gallbladder problem and No black,tarry stools Juan Hematologic: No blood thinners, No blood disorders, No bleeding, No anemia and No blood clots Neuro Neurologic: No system reviewed and no additional complaints, except as documented, No as per HPI, No abnormal gait, No abnormal hearing, No abnormal movements, No abnormal speech, No behavioral changes, No burning sensations, No confusion, No convulsions, No disequilibrium, No dizziness, No localized weakness, No frequent falls, No headache(s), No lack of coordination, No loss of vision, No memory loss, Yes numbness, No other visual disturbances, No radicular pain, No restless legs, No sensory deficit, No syncope, Yes tingling, No tremor(s), No weakness and No other Exam Const General: cooperative, healthy appearing, comfortable and no acute distress [facility] Head: normal to inspection Eyes General: appearance normal, both eyes and all related structures Neck Neck: normal visual inspection Neck mass: No Resp Effort & Inspection: normal respiratory effort Cardio Rate: regular rate Rhythm: regular rhythm GI Inspection: normal to inspection Palpation: soft Auscultation: normal bowel sounds Musc Cervical Spine: normal cervical lordosis Skin General: no rashes or lesions noted Neuro General: no focal motor deficits and CN's II-XI intact bilaterally Extrem General: normal to inspection Psych Appearance: grossly normal Affect: normal affect Assessment and Plan Assessment and Plan (1) 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 Patient states this is more positional related and occurs more when he is sitting. He notes he is a fast eater. He is unsure if this is what may be causing the gas build up. Patient does have a history of Narvaez's and his last EGD was completed in 2020. Patient is due for a repeat upper scope for re-evaluation of his Narvaez's. Considering the patient is having a new onset of symptoms, I am recommending the patient have an upper scope with possible biopsies. Dr. Lindsey will plan to perform an upper scope with possible biopsies. Procedure details, risks and benefits have been discussed. Patient has had the opportunity to ask and have questions answered. Patient verbally understands and agrees with the plan. (2) Encounter for screening colonoscopy: Status: Acute Plan: Our office will obtain patient's previous colonoscopy records. Patient would like to have a colonoscopy at the same setting if he is due for one. Dr. Lindsey will plan to perform a colonoscopy with possible biopsies. Procedure details, risks and benefits have been explained. Patient is requesting the pill prep. He has a scheduled appointment with his PCP, Dr. Nieto, on Tuesday 04/24. He will discuss with his PCP, as of right now the patient is not due for a colonoscopy until 2024. Patient has had the opportunity to ask and have questions answered. Patient verbally understands and agrees with the plan. Orders: Orders Colonoscopy 06/02/23 Plan to proceed just with a esophagogastroduodenoscopy today with possible biopsy or polypectomy as indicated. He is aware of technique, benefit, risk, alternatives. We will proceed as noted. Mark Lindsey M.D., F.A.C.S. 06/02/23
--- NOTE | 2023-06-02 10:00 | EGD_PTH ---
PATIENT: CLARISSE ALONZO LOC: EN U#:[id number] AGE/SX: 72/M ROOM: RE06/02/[address]: Dr. Mark Lindsey MD : 1950 BED: DIS: 06/02/2023 SPEC #: [id number] RECD: 06/02/23 12:11 STATUS: LINA REKathryn #: [id number] LALY: 06/02/23 10:[address]: Mark iLndsey DEPT: SURGICAL PATHOLOGY RECD BY: Bret Taylor ENTERED: 06/02/23 13:00 SP TYPE: EGD BIOPSY OT DR: Dr. Dylon Nieto MD Tissues: A - Gastric mucous membrane B - Stomach, NOS C - Esophagus, NOS Procedures: Surgery Specimen Level IV HEADER OPERATION: EGD, biopsy PRE-OP DIAGNOSIS: Narvaez's esophagus TISSUE SUBMITTED: A - Antrum biopsy for histo and H. pylori, B - Greater curvature polyp biopsy, C - Distal esophagus biopsy MICROSCOPIC DIAGNOSIS A. Gastric antrum, biopsy: Chronic gastritis. See comment. B. Greater curvature polyp, biopsy: Fundic gland polyp. C. Distal esophagus, biopsy: Fragments of benign squamous mucosa. Focal changes of reflux. AM:robert 06/05/2023 COMMENT A. The results of immunohistochemistry for Helicobacter pylori will be reported separately ([id number]). MICROSCOPIC DESCRIPTION Slides are reviewed. GROSS DESCRIPTION A - Received in fixative is one container labeled with the patient's name and designated antrum biopsy. The specimen consists of one irregular fragment of light sykes soft tissue that measures 0.5 x 0.5 x 0.1 cm. The specimen is totally submitted in one cassette. B - Received in fixative is one container labeled with the patient's name and designated greater curvature polyp. The specimen consists of one irregular fragment of light sykes soft tissue that measures 0.5 x 0.5 x 0.1 cm. The specimen is totally submitted in one cassette. C - Received in fixative is one container labeled with the patient's name and designated distal esophagus biopsy. The specimen consists of one irregular fragment of light sykes soft tissue that measures 0.6 x 0.2 x 0.1 cm. The specimen is totally submitted in one cassette. / AM:robert 06/02/2023 TC:3 CPT: 07909 x3
--- NOTE | 2023-06-02 10:00 | IMM_PTH ---
PATIENT: CLARISSE ALONZO LOC: [facility] U#:[id number] AGE/SX: 72/M ROOM: RE06/02/[address]: Dr. Mark Lindsey MD : 1950 BED: DIS: 06/02/2023 SPEC #: [id number] RECD: 06/02/23 14:58 STATUS: LINA REQ #: [id number] LALY: 06/02/23 10:[address]: Mark Lindsey DEPT: IMMUNOHISTOCHEMISTRY RECD BY: Flora Mariee ENTERED: 06/02/23 14:58 SP TYPE: IMMUNO OTHR DR: Dr. Dylon Nieto MD Tissues: A - Stomach, NOS Procedures: H Pylori (initial) PHYSICIAN & INSTITUTION [place] [id number] SPECIMEN INFORMATION: Tissue Source: A - Antrum Clinical Info: Narvaez's esophagus Specimen Number: [id number] CPT code: 80446 METHODOLOGY: Deparaffinized sections of prefer/formalin-fixed tissue or PAP/DQ stained slides are incubated with monoclonal/polyclonal antibodies/oligonucleotide probes. Localization is made via biotin free immunoperoxidase method. Appropriate controls are performed and reacted as expected. Results on target cell population are indicated in the following table: RESULTS: ANTIBODY / CLONE RESULT Block A H Pylori (polyclonal) negative These tests were developed and their performance characteristics determined by [facility]. They may not have been cleared or approved by the U.S. Food and Drug Administration. The FDA has determined that such clearance or approval is not necessary. The above immunohistochemical/dualISH markers are ordered and reviewed by the Pathologist. INTERPRETATION: A. Antrum, biopsy: Negative for Helicobacter pylori organisms. AM:robert 06/05/2023
[2023-06-02 10:10] VITALS: BP 117/70; BP 163/74; PULSE 93; RESP 16; TEMP 36.9; O2SAT 98
--- NOTE | 2023-06-02 10:12 | OP.EGD_ITS ---
Patient Name: Sanford Munguia Procedure Date: 06/02/2023 9:51 AM Date of : 1950 Age: 72 Procedure: Upper GI endoscopy Indications: Follow-up of Narvaez's esophagus Providers: Mark Lindsey MD Referring MD: Mark Lindsey MD Medicines: See the Anesthesia note for documentation of the administered medications Complications: No immediate complications. Procedure: Pre-Anesthesia Assessment: - Prior to the procedure, a History and Physical was performed, and patient medications and allergies were reviewed. The patient's tolerance of previous anesthesia was also reviewed. The risks and benefits of the procedure and the sedation options and risks were discussed with the patient. All questions were answered, and informed consent was obtained. Prior Anticoagulants: The patient has taken no anticoagulant or antiplatelet agents. ASA Grade Assessment: II - A patient with mild systemic disease. After reviewing the risks and benefits, the patient was deemed in satisfactory condition to undergo the procedure. After obtaining informed consent, the endoscope was passed under direct vision. Throughout the procedure, the patient's blood pressure, pulse, and oxygen saturations were monitored continuously. The Endoscope was introduced through the mouth, and advanced to the second part of duodenum. The upper GI endoscopy was accomplished without difficulty. The patient tolerated the procedure well. Scope In: 9:58:32 AM Scope Out: 10:04:55 AM Total Procedure Duration Time 0 hours 6 minutes 23 seconds Findings: The examined esophagus was normal. Biopsies were taken with a cold forceps for histology. A prior Toupet fundoplication was found at the gastroesophageal junction. Diffuse mildly erythematous mucosa without bleeding was found in the gastric antrum. Biopsies were taken with a cold forceps for histology. Multiple sessile polyps with no bleeding and no stigmata of recent bleeding were found on the greater curvature of the stomach. The polyp was removed with a cold biopsy forceps. Resection and retrieval were complete. The examined duodenum was normal. Impression: - Normal esophagus. Biopsied distally. No evidence for Narvaez's, no evidence for significant varices - A Toupet fundoplication was found. Toupet wrap appears to be intact - Erythematous mucosa in the antrum. Biopsied. - Multiple gastric polyps. Resected and retrieved. - Normal examined duodenum. Recommendation: - Telephone my office for pathology results in 1 week. - Continue present medications. Procedure Code(s): --- Professional --- 23694, Esophagogastroduodenoscopy, flexible, transoral; with biopsy, single or multiple Diagnosis Code(s): --- Professional --- K22.70, Narvaez's esophagus without dysplasia Z98.890, Other specified postprocedural states K31.89, Other diseases of stomach and duodenum K31.7, Polyp of stomach and duodenum CPT copyright 2021 [employer]. All rights reserved. The codes documented in this report are preliminary and upon auto radiator mechanic review may be revised to meet current compliance requirements. Mark Lindsey MD 06/02/2023 10:11:43 AM This report has been signed electronically. Number of Addenda: 0 Note Initiated On: 06/02/2023 9:51 AM
--- NOTE | 2023-06-02 10:12 | OP.CCLET_ITS ---
06/02/2023 Dylon Nieto MD Re : Upper GI endoscopy procedure for Sanford Munguia Dear Dr. Nieto This procedure was performed on Friday, June 02, 2023. My impressions and recommendations are as follows: Impressions : - Normal esophagus. Biopsied distally. No evidence for Narvaez's, no evidence for significant varices - A Toupet fundoplication was found. Toupet wrap appears to be intact - Erythematous mucosa in the antrum. Biopsied. - Multiple gastric polyps. Resected and retrieved. - Normal examined duodenum. Recommendations : - Telephone my office for pathology results in 1 week. - Continue present medications. My findings are described in the full procedure note, which is enclosed. If I can be of further assistance, please feel free to contact me at Doctor phone number(s): Work: . Sincerely, Mark Lindsey MD 06/02/2023 10:11:43 AM This report has been signed electronically.
[2023-06-02 10:15] VITALS: BP 123/86; BP 163/74; PULSE 77; RESP 16; O2SAT 96
[2023-06-02 10:20] VITALS: BP 142/75; BP 163/74; PULSE 83; RESP 16; O2SAT 99
[2023-06-02 10:25] VITALS: BP 119/78; BP 163/74; PULSE 64; RESP 16; TEMP 36.9; O2SAT 96
[2023-06-02 10:36] VITALS: BP 163/74
== END 2023-06-02 10:50 | disposition home or self-care (01) ==
LOC: EN 08:58 → AC 08:58
PROVIDERS: PCP Family Medicine; Referring Provider Surgery; Visit Provider Surgery
PROC: 0DJ08ZZ Inspection of Upper Intestinal Tract, Via Natural or Artificial Opening Endoscopic (ICD-10-PCS; CPT 43235; principal; 2023-06-02 09:55)
DX: R14.1 Gas pain (principal); Z87.891 Personal history of nicotine dependence; K31.7 Polyp of stomach and duodenum; I10 Essential (primary) hypertension; Z79.899 Other long term (current) drug therapy; N40.0 Benign prostatic hyperplasia without lower urinary tract symptoms; Z90.49 Acquired absence of other specified parts of digestive tract; K22.70 Barrett's esophagus without dysplasia; Z98.890 Other specified postprocedural states; K31.89 Other diseases of stomach and duodenum; K29.50 Unspecified chronic gastritis without bleeding
CPT/HCPCS: 43239; 88305; 88342; J7120; J2405